=== PATIENT | female | born 1970 | race Caucasian/White ===

== ENCOUNTER 2020-01-10 11:13 | Inpatient (IN) | payer MEDICARE, OTHER ==
[~2020-01-10] VITALS: Ht 154.9 cm; Wt 67.1 kg
--- NOTE | 2020-01-10 11:41 | NUR ---
PT IS IN ROOM #1A. DR SYED EVALUATED THE PT.
[2020-01-10] MEDS ORDERED: ACETAMINOPHEN ES 500 MG TABLET PO ONE (11:45)
[2020-01-10] MEDS ORDERED: IBUPROFEN 400 MG TABLET PO ONE (12:00)
[2020-01-10] MEDS ORDERED: IV NS 1000 ML 1,000 ML IV ONE (12:00)
[2020-01-10] MEDS ORDERED: CEFEPIME HCL 2 G in IV DEXTROSE 5% 100 ML IV ONE (12:00)
[2020-01-10 12:07] LABS: BASOPHILS % (AUTO) 0.3 % (0.0-2.0); EOSINOPHILS % (AUTO) 0.3 % (0.0-7.0); HEMATOCRIT 39.1 % (31.2-41.9); HEMOGLOBIN 12.7 g/dL (10.9-14.3); LYMPHOCYTES # (AUTO) 1.3 K/uL (20.0-40.0); LYMPHOCYTES % (AUTO) 9.8 % (20.5-51.5); MEAN CORPUSCULAR HEMOGLOBIN 28.8 uug (24.7-32.8); MEAN CORPUSCULAR HGB CONC 32 g/dL (32.3-35.6); MEAN CORPUSCULAR VOLUME 88.8 fL (75.5-95.3); MONOCYTES # (AUTO) 0.5 K/uL (2.0-10.0); MONOCYTES % (AUTO) 3.9 % (0.0-11.0); NEUTROPHILS # (AUTO) 11.5 K/uL (1.8-8.9); NEUTROPHILS % (AUTO) 85.7 % (38.5-71.5); PLATELET COUNT (AUTO) 241 K/uL (179-408); WHITE BLOOD COUNT (AUTO) 13.4 K/uL (3.8-11.8)
[2020-01-10] MEDS ORDERED: CEFEPIME HCL 1 G VIAL ONE (12:07)
[2020-01-10] MEDS ORDERED: IBUPROFEN 400 MG TABLET ONE (12:08)
[2020-01-10] MEDS ORDERED: ACETAMINOPHEN ES 500 MG TABLET ONE (12:09)
[2020-01-10 12:18] LABS: CREATININE 0.9 mg/dL (0.6-1.3)
[2020-01-10] MEDS ORDERED: levothyroxine PO (12:33)
[2020-01-10 12:35] LABS: BILIRUBIN,DIRECT 0.1 mg/dL (0.0-0.2); BILIRUBIN,TOTAL 0.2 mg/dL (0.2-1.0); MAGNESIUM 1.9 mg/dL (1.8-2.4); PHOSPHOROUS 2.5 mg/dL (2.5-4.9); TOTAL PROTEIN, SERUM 7.6 g/dL (6.4-8.2)
[2020-01-10 12:36] LABS: THYROID STIMULATING HORMONE 0.124 mIU/mL (0.358-3.740)
[2020-01-10 13:39] LABS: *BILIRUBIN,URIN NEGATIVE (NEGATIVE); *BLOOD, URINE NEGATIVE (NEGATIVE); *CLARITY,URINE CLEAR (CLEAR); *COLOR,URINE YELLOW (YELLOW); *KETONES,URINE NEGATIVE (NEGATIVE); *UROBILINOGEN,URINE 0.2 E.U./dl (NORMAL); LEUKOCYTE ESTERASE ,URINE NEGATIVE (NEGATIVE); NITRITE, URINE NEGATIVE (NEGATIVE); PH,URINE 8.5 (5.0-8.0); UGLUCOSE NEGATIVE (NEGATIVE)
[2020-01-10] MEDS ORDERED: ONDANSETRON 4 MG/2 ML VIAL IV PRN (14:00)
--- NOTE | 2020-01-10 14:55 | NUR ---
REPORT GIVEN TO [employer]. PT WAS TRANSFERED TO ROOM #318.
--- NOTE | 2020-01-10 15:43 | NUR ---
RECEIVED PATIENT FOR ADMISSION 49 YEARS OLD FEMALE FROM ED BY [facility] TO ROOM 308 WITH DX OF SEPSIS PLACED INTO BED FIXED AND MADE COMFORTABLE PATIENT IS ALERT AND ORIENTED DENIES PAIN OR DISCOMFORTS AT THIS TIME ON ROOM AIR WITH NO SHORTNESS OF BREATH AT THIS TIME YEFRI ALDANA AWARE THAT PATIENT IS HERE WILL SEE PATIENT.
[2020-01-10 16:00] VITALS: BP 95/57
[2020-01-10] MEDS: IV NS 1000 ML 1,000 ML IV PRN (16:33)
[2020-01-10] MEDS: CEFTRIAXONE 1 G in IV DEXTROSE 5% 50 ML IV SCH (16:34)
[2020-01-10] MEDS: AZITHROMYCIN IV 500 MG in IV DEXTROSE 5% 250 ML IV SCH (17:07)
--- NOTE | 2020-01-10 17:30 | NUR ---
PATIENT STATED THAT MEDICATIONS THAT SHE TAKES AT HOME IS NOT DOCUMENTED SO SHE GAVE ME THE LIST AND I ADDED THEM TO HER HOME MEDICATION LIST AND NOTIFIED YEFRI TO RECONCILE.
[2020-01-10] MEDS ORDERED: OLAN10TA3 PO (17:37)
[2020-01-10] MEDS ORDERED: TRAZ300T2 PO (17:37)
[2020-01-10] MEDS ORDERED: GABA800T PO (17:37)
--- NOTE | 2020-01-10 18:38 | NUR ---
CALLED THE [facility] TO CLARIFY PATIENTS HOME MEDS AND THE DOSES PER ML THE PHARMACIST SHE GAVE ME A LIST OF 7 MORE MEDICATIONS THAT PATIENT IS ON ALSO CONFIRMED THAT THE DOSES OF ALL THE MEDS ENTERED IS CORRECT MESSAGE SENT TO YEFRI ROONEY
[2020-01-10] MEDS ORDERED: LEVO125T8 PO (18:52)
[2020-01-10] MEDS ORDERED: ARIP20TA4 PO (18:52)
[2020-01-10] MEDS ORDERED: LAMO200T2 PO (18:52)
[2020-01-10] MEDS ORDERED: [UNRECOGNIZED DRUG - OTHER] (18:52)
[2020-01-10] MEDS ORDERED: DEXL60CA3 PO (18:52)
[2020-01-10] MEDS ORDERED: CLON1TAB PO (18:52)
[2020-01-10] MEDS ORDERED: TOPI50TA PO (18:52)
[2020-01-10] MEDS ORDERED: MELO15TA13 PO (18:52)
[2020-01-10] MEDS ORDERED: MELOXICAM 7.5 MG TABLET PO PRN (19:00)
--- NOTE | 2020-01-10 19:34 | NUR ---
LACTIC ACID LEVEL IS 2.7 RECEIVED FROM THE LAB AND RELAYED TO YEFRI WITH NO NEW ORDERS AT THIS TIME
--- NOTE | 2020-01-10 21:00 | NUR ---
NEVIN Restrepo ordered repeat lactic acid which is now 0.7.
[2020-01-10 21:07] VITALS: BP 107/60
[2020-01-10] MEDS: GABAPENTIN 400 MG CAPSULE PO SCH (21:36)
[2020-01-10] MEDS: TRAZODONE 100 MG TABLET PO SCH (21:37)
[2020-01-10] MEDS: OLANZAPINE 5 MG TABLET PO SCH (22:52)
[2020-01-10] MEDS: ARIPIPRAZOLE 10 MG TABLET PO SCH (22:52)
[2020-01-10] MEDS: TOPIRAMATE 25 MG TABLET PO SCH (22:53)
[2020-01-11 01:31] VITALS: BP 109/57
[2020-01-11 05:14] VITALS: BP 107/81
[2020-01-11] MEDS: IV NS 1000 ML 1,000 ML IV PRN ×2 (05:57→15:20)
[2020-01-11] MEDS: PANTOPRAZOLE SODIUM 40 MG TABLET.DR PO SCH (06:00)
--- NOTE | 2020-01-11 06:02 | NUR ---
Patient rested well in between care;no acute distress; periods of confusion; bed alarm on all the time; assisted to meet hygiene needs; continue to monitor; continue plan of care
[2020-01-11 06:57] LABS: BASOPHILS % (AUTO) 0.4 % (0.0-2.0); EOSINOPHILS # (AUTO) 0.1 K/uL (0.0-0.7); EOSINOPHILS % (AUTO) 1.1 % (0.0-7.0); HEMATOCRIT 35.3 % (31.2-41.9); HEMOGLOBIN 11.6 g/dL (10.9-14.3); LYMPHOCYTES # (AUTO) 1.7 K/uL (20.0-40.0); LYMPHOCYTES % (AUTO) 14.3 % (20.5-51.5); MEAN CORPUSCULAR HEMOGLOBIN 29.5 uug (24.7-32.8); MEAN CORPUSCULAR HGB CONC 33 g/dL (32.3-35.6); MEAN CORPUSCULAR VOLUME 89.7 fL (75.5-95.3); MONOCYTES # (AUTO) 0.5 K/uL (2.0-10.0); MONOCYTES % (AUTO) 4.8 % (0.0-11.0); NEUTROPHILS # (AUTO) 9.2 K/uL (1.8-8.9); NEUTROPHILS % (AUTO) 79.4 % (38.5-71.5); PLATELET COUNT (AUTO) 226 K/uL (179-408); RED BLOOD CELL COUNT(AUTO) 3.93 MIL/uL (3.63-4.92); WHITE BLOOD COUNT (AUTO) 11.6 K/uL (3.8-11.8)
[2020-01-11 07:12] LABS: CREATININE 0.9 mg/dL (0.6-1.3); POTASSIUM 4.2 mmol/L (3.5-5.1)
[2020-01-11 07:16] LABS: BILIRUBIN,TOTAL 0.2 mg/dL (0.2-1.0); MAGNESIUM 1.8 mg/dL (1.8-2.4); PHOSPHOROUS 2.2 mg/dL (2.5-4.9); TOTAL PROTEIN, SERUM 6.5 g/dL (6.4-8.2)
[2020-01-11] MEDS ORDERED: NEUTRA PHOS PACKET PO ONE (08:30)
[2020-01-11] MEDS: CLONAZEPAM 1 MG TABLET PO SCH (08:41)
[2020-01-11] MEDS: LAMOTRIGINE 100 MG TABLET PO SCH (08:41)
[2020-01-11] MEDS: LEVOTHYROXINE SODIUM 125 MCG TABLET PO SCH (08:42)
--- NOTE | 2020-01-11 08:45 | NUR ---
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
[2020-01-11] MEDS ORDERED: Medication Not On Formulary EA (Dexlansoprazole (Dexilant) 30 MG) PO SCH (09:00)
[2020-01-11] MEDS ORDERED: LAMOTRIGINE 200 MG TABLET PO SCH (09:00)
[2020-01-11] MEDS ORDERED: AMITIZA 24 MCG PO SCH (09:00)
--- NOTE | 2020-01-11 09:35 | NUR ---
PATIENT SEEN BY THE PHYSICAL THERAPY FOR EVALUATION AND THE ASSISTED HER TO THE BATHROOM AND SHE VOIDED AND BACK TO BED GAIT IS UNSTEADY AND WEAK AT THIS TIME
--- NOTE | 2020-01-11 11:27 | NUR ---
PATIENT IS RESTING WITH IVF IN PROGRESS AT THIS TIME DENIES DISCOMFORTS WILL CONTINUE TO OBSERVE.
[2020-01-11 11:39] VITALS: BP 127/84
[2020-01-11] MEDS: AZITHROMYCIN IV 500 MG in IV DEXTROSE 5% 250 ML IV SCH (13:52)
[2020-01-11] MEDS: CEFTRIAXONE 1 G in IV DEXTROSE 5% 50 ML IV SCH (15:18)
[2020-01-11 15:59] VITALS: BP 127/82
--- NOTE | 2020-01-11 18:00 | NUR ---
REMAIN ON IVF AND ATB WITH NO ADVERSE OR ALLERGIC REACTIONS AT THIS TIME RESTING COMFORTABLY AT THIS TIME
--- NOTE | 2020-01-11 19:48 | NUR ---
Pt refuses to have blood pressure taken at this time. Patient does not appear to be in any distress at this time. Informed patient that vital signs will be taken prior to medication administration. Patient verbalized understanding.
[2020-01-11 20:00] VITALS: BP 127/71
--- NOTE | 2020-01-11 20:00 | NUR ---
Received patient awake and alert. Patient shows no signs or symptoms of distress this time. Vital signs stable. Patient reports feeling very anxious because she does not want to be in the hospital anymore. Patient took off continuous pulse oximeter and refuses to have it placed back on. Explained to patient risks and benefits of having continuous pulse ox and patient still refuses to have it put on. Patient requesting for her nightly medication to help calm her. Will administer medication and will continue to monitor patient.
[2020-01-11] MEDS: ARIPIPRAZOLE 10 MG TABLET PO SCH (20:36)
[2020-01-11] MEDS: GABAPENTIN 400 MG CAPSULE PO SCH (20:36)
[2020-01-11] MEDS: OLANZAPINE 5 MG TABLET PO SCH (20:36)
[2020-01-11] MEDS: TRAZODONE 100 MG TABLET PO SCH (20:37)
[2020-01-11] MEDS: TOPIRAMATE 25 MG TABLET PO SCH (20:37)
[2020-01-12] MEDS: IV NS 1000 ML 1,000 ML IV PRN (02:23)
[2020-01-12 02:56] LABS: *URINE HCG, QUAL NEGATIVE (NEGATIVE)
[2020-01-12 04:00] VITALS: BP 106/65
[2020-01-12] MEDS: PANTOPRAZOLE SODIUM 40 MG TABLET.DR PO SCH (06:07)
[2020-01-12 06:47] LABS: BASOPHILS % (AUTO) 0.6 % (0.0-2.0); EOSINOPHILS # (AUTO) 0.2 K/uL (0.0-0.7); EOSINOPHILS % (AUTO) 2.3 % (0.0-7.0); HEMATOCRIT 34.2 % (31.2-41.9); HEMOGLOBIN 11.6 g/dL (10.9-14.3); LYMPHOCYTES # (AUTO) 2.1 K/uL (20.0-40.0); LYMPHOCYTES % (AUTO) 25.3 % (20.5-51.5); MEAN CORPUSCULAR HEMOGLOBIN 30.1 uug (24.7-32.8); MEAN CORPUSCULAR HGB CONC 34 g/dL (32.3-35.6); MEAN CORPUSCULAR VOLUME 89.2 fL (75.5-95.3); MONOCYTES # (AUTO) 0.5 K/uL (2.0-10.0); MONOCYTES % (AUTO) 6.3 % (0.0-11.0); NEUTROPHILS # (AUTO) 5.3 K/uL (1.8-8.9); NEUTROPHILS % (AUTO) 65.5 % (38.5-71.5); PLATELET COUNT (AUTO) 224 K/uL (179-408); RED BLOOD CELL COUNT(AUTO) 3.84 MIL/uL (3.63-4.92); WHITE BLOOD COUNT (AUTO) 8.1 K/uL (3.8-11.8)
[2020-01-12 06:53] LABS: CREATININE 0.9 mg/dL (0.6-1.3); MAGNESIUM 1.7 mg/dL (1.8-2.4); PHOSPHOROUS 2.8 mg/dL (2.5-4.9); POTASSIUM 3.9 mmol/L (3.5-5.1)
--- NOTE | 2020-01-12 07:25 | NUR ---
Patient shows no signs or symptoms of distress this time. Vital signs stable. Patient endorsed to day shift nurse in stable condition
--- NOTE | 2020-01-12 08:00 | NUR ---
RECEIVED PATIENT IN BED AWAKE ALERT AND ORIENTED DENIES PAIN OR DISCOMFORTS AT THIS TIME REMAIN ON REMAIN ON IVF ORDERED WITH NO S/S OF INFILTERATION ON SITE ATB IN PROGRESS WITH NO ADVERSE OR ALLERGIC REACTIONS AT THIS TIME NO SOB SATS HAS BEEN ADEQUATE MADE COMFORTABLE WILL CONTINUE TO OBSERVE.
[2020-01-12] MEDS: LAMOTRIGINE 100 MG TABLET PO SCH (08:15)
[2020-01-12] MEDS: CLONAZEPAM 1 MG TABLET PO SCH (08:15)
[2020-01-12] MEDS: LEVOTHYROXINE SODIUM 125 MCG TABLET PO SCH (08:20)
--- NOTE | 2020-01-12 08:21 | NUR ---
UNABLE TO SCAN SYNTHROID THE COMPUTER SAID ITS AN UNKNOWN NDC NUMBER CALLED AND NOTIFIED THE PHARMACIST SPOKE WITH MATHIEU STATED TO USE THE KAIN BAR CODE ENTER WILL UPDATE THIS ITS PROBABLY FROM A DIFFERENT FUNCTIONAL ARCHITECT.
[2020-01-12] MEDS: MAGNESIUM SULFATE/D5W 100 ML IV SCH ×2 (11:28→12:26)
[2020-01-12 11:50] VITALS: BP 119/71
[2020-01-12] MEDS: CEFTRIAXONE 1 G in IV DEXTROSE 5% 50 ML IV SCH (14:05)
--- NOTE | 2020-01-12 14:44 | NUR ---
PATIENT HAS A DISCHARGE ORDER AND IS BEING PREPPED FOR DISCHARGE STATED HER WILL BE ABLE TO PICK HER UP THIS AFTERNOON HER MAG LEVEL IS 1.7 WITH 2 GRAMS OF MAG ORDERED AND IS BEING INFUSED AT THIS TIME.REMAIN ON ATB ORDERED WITH NO ADVERSE OR ALLERGIC REACTIONS AT THIS TIME.AFEBRILE WILL CONTINUE TO OBSERVE.
[2020-01-12 15:40] VITALS: BP 103/69
--- NOTE | 2020-01-12 15:45 | NUR ---
PATIENT DISCHARGED PICKED UP BY HER IN SATISFACTORY CONDITION WITH DISCHARGE INSTRUCTIONS AND ALL OF HER PERSONAL BELONGINGS AND SHE WAS INSTRUCTED TO FOLLOW UP WITH HER PRIMARY DOCTOR AND THE ORTHOPEDIC AND SHE ALREADY HAS A APPOINTMENT FOR SATURDAY AND SHE EXPRESSED UNDERSTAND.
== END 2020-01-12 15:45 | disposition home or self-care (01) | DRG 864 ==
LOC: ER 11:13 → TELE3 14:52 → MEDSURG3 01-11 10:30
PROVIDERS: ADMIT Registered Nurse; ATTEND Nurse Practitioner Acute Care
DX: R50.9 Fever, unspecified (principal); E87.2 Acidosis; E03.9 Hypothyroidism, unspecified; F32.9 Major depressive disorder, single episode, unspecified; F41.9 Anxiety disorder, unspecified; Z87.891 Personal history of nicotine dependence; Z88.0 Allergy status to penicillin; D72.829 Elevated white blood cell count, unspecified; Z98.890 Other specified postprocedural states
CPT/HCPCS: 36415; 70030-TC; 71045; 83605; 83615; 83690; 83735; 84100; 84443; 84703; 85025; 85730; 86140; 87040; 87086; 87400; 93005; 93307; A4663; A9150; G0378; J0456; J0692; J0696; J3475; J3490; J7030; J7060

== ENCOUNTER 2020-08-29 08:10 | Emergency (ER) | payer MEDICARE, OTHER ==
[~2020-08-29] VITALS: Ht 160 cm; Wt 65.8 kg
[~2020-08-29 08:10] MED LIST: DEXL60CA3 PO; GABA800T PO; HYDR-4354 PO; LAMO200T2 PO; LEVO125T8 PO; MELO15TA13 PO; OLAN10TA3 PO; TOPI50TA PO; TRAZ300T2 PO; [UNRECOGNIZED DRUG - OTHER]
[2020-08-29] MEDS ORDERED: CLAR-45 PO (09:57)
[2020-08-29] MEDS ORDERED: PROM118S5 PO (09:58)
--- NOTE | 2020-08-29 10:15 | NUR ---
Patient discharged to home in stable condition. Written and verbal after care instructions given. Patient verbalizes understanding of instructions. Stressed follow up or return to ER for worsening s/s.PT WALKS IN STEADY GAIT, NO SIGN OF DISTRESS.
--- NOTE | 2020-08-30 11:17 | NUR ---
Patient COVID-19 PCR results came back positive, patient was contacted and informed about her results. Isolation instruction was given to patient.
== END 2020-08-29 10:17 | disposition home or self-care (01) ==
LOC: ER 08:10
DX: U07.1 COVID-19 (principal); E03.9 Hypothyroidism, unspecified; Z79.890 Hormone replacement therapy; Z79.899 Other long term (current) drug therapy; Z88.5 Allergy status to narcotic agent; Z88.0 Allergy status to penicillin; F41.9 Anxiety disorder, unspecified; F32.9 Major depressive disorder, single episode, unspecified
CPT/HCPCS: 71045; 87426; 99284; U0003; A4663

== ENCOUNTER 2023-02-19 19:06 | Emergency (ER) | payer MEDICARE, OTHER ==
[~2023-02-19] VITALS: Ht 152.4 cm; Wt 61.2 kg
[~2023-02-19 19:06] MED LIST changes: +CLAR-45 PO; +PROM118S5 PO
[2023-02-19] MEDS ORDERED: VANCOMYCIN 1G/D5W 200 ML PIGGYBACK IV ONE (20:15)
[2023-02-19 20:22] LABS: BASOPHILS % (AUTO) 0.6 % (0.0-2.0); EOSINOPHILS # (AUTO) 0.2 K/uL (0.0-0.7); EOSINOPHILS % (AUTO) 2.8 % (0.0-7.0); HEMATOCRIT 36.5 % (31.2-41.9); HEMOGLOBIN 12.2 g/dL (10.9-14.3); LYMPHOCYTES # (AUTO) 2.4 K/uL (0.8-4.8); LYMPHOCYTES % (AUTO) 33.9 % (20.5-51.5); MEAN CORPUSCULAR HEMOGLOBIN 30.5 uug (24.7-32.8); MEAN CORPUSCULAR HGB CONC 33 g/dL (32.3-35.6); MEAN CORPUSCULAR VOLUME 91.2 fL (75.5-95.3); MONOCYTES # (AUTO) 0.5 K/uL (0.1-1.30); MONOCYTES % (AUTO) 6.7 % (0.0-11.0); NEUTROPHILS # (AUTO) 3.9 K/uL (1.8-8.9); PLATELET COUNT (AUTO) 244 K/uL (179-408); RED BLOOD CELL COUNT(AUTO) 4.01 MIL/uL (3.63-4.92); RED CELL DISTRIBUTION WIDTH 12.8 % (12.3-17.7); WHITE BLOOD COUNT (AUTO) 6.9 K/uL (3.8-11.8)
[2023-02-19] MEDS ORDERED: VANCOMYCIN 1000 MG VIAL ONE (20:26)
[2023-02-19 20:29] LABS: DIFFERENTIAL COMMENT 1
[2023-02-19 20:36] LABS: CALCIUM 9.4 mg/dL (8.5-10.1); CARBON DIOXIDE 32 mmol/L (21-32); CHLORIDE 105 mmol/L (98-107); GLUCOSE 113 mg/dL (74-106); POTASSIUM 4.1 mmol/L (3.5-5.1); SODIUM SERUM 143 mmol/L (136-145); UREA NITROGEN, BLOOD 18 mg/dL (7-18)
[2023-02-19 20:50] LABS: ALANINE AMINOTRANSFERASE 23 U/L (14-59); ALBUMIN 3.3 g/dL (3.4-5.0); ALKALINE PHOSPHATASE 63 U/L (50-136); ASPARTATE AMINOTRANSFERASE 16 U/L (15-37); BILIRUBIN,DIRECT < 0.1 mg/dL (0.0-0.2); BILIRUBIN,TOTAL 0.1 mg/dL (0.2-1.0); TOTAL PROTEIN, SERUM 6.7 g/dL (6.4-8.2)
[2023-02-19] MEDS ORDERED: SULF1TAB48 PO (22:45)
[2023-02-19] MEDS ORDERED: TRIA60LO7 TP (22:49)
[2023-02-19 22:54] VITALS: BP 128/71; O2SAT 99
== END 2023-02-19 22:56 | disposition home or self-care (01) ==
LOC: ER 19:09
DX: L03.113 Cellulitis of right upper limb (principal); E03.9 Hypothyroidism, unspecified; Z90.89 Acquired absence of other organs; Z88.0 Allergy status to penicillin; Z88.5 Allergy status to narcotic agent; Z79.2 Long term (current) use of antibiotics; Z79.899 Other long term (current) drug therapy
CPT/HCPCS: 99284; 96365; 80076; 80048; 85025; 36415; 73060; 73090; 83605; J3370; J7050; A4663

== ENCOUNTER 2024-10-21 20:59 | Inpatient (IN) | payer MEDICARE, OTHER ==
[~2024-10-21] VITALS: Ht 152.4 cm; Wt 40.8 kg
[~2024-10-21 20:59] MED LIST changes: +SULF1TAB48 PO; +TRIA60LO7 TP
[2024-10-21 21:20] LABS: BASOPHILS # (AUTO) 0.1 K/UL (0.0-0.2); BASOPHILS % (AUTO) 1.3 % (0.0-2.0); EOSINOPHILS % (AUTO) 0.3 % (0.0-7.0); HEMATOCRIT 37.8 % (31.2-41.9); HEMOGLOBIN 12.5 g/dL (10.9-14.3); LYMPHOCYTES # (AUTO) 2.5 K/uL (0.8-4.8); LYMPHOCYTES % (AUTO) 34.4 % (20.5-51.5); MEAN CORPUSCULAR HEMOGLOBIN 28.8 uug (24.7-32.8); MEAN CORPUSCULAR HGB CONC 33 g/dL (32.3-35.6); MEAN CORPUSCULAR VOLUME 86.7 fL (75.5-95.3); MONOCYTES # (AUTO) 0.5 K/uL (0.1-1.30); MONOCYTES % (AUTO) 7.3 % (0.0-11.0); NEUTROPHILS # (AUTO) 4.1 K/uL (1.8-8.9); NEUTROPHILS % (AUTO) 56.7 % (38.5-71.5); PLATELET COUNT (AUTO) 342 K/uL (179-408); RED BLOOD CELL COUNT(AUTO) 4.36 MIL/uL (3.63-4.92); RED CELL DISTRIBUTION WIDTH 13.9 % (12.3-17.7); WHITE BLOOD COUNT (AUTO) 7.3 K/uL (3.8-11.8)
[2024-10-21 21:25] LABS: DIFFERENTIAL COMMENT 1
[2024-10-21 21:29] LABS: CALCIUM 9.3 mg/dL (8.5-10.1); CARBON DIOXIDE 26 mmol/L (21-32); CHLORIDE 106 mmol/L (98-107); CREATININE 0.7 mg/dL (0.6-1.3); GLUCOSE 92 mg/dL (74-106); SODIUM SERUM 143 mmol/L (136-145); UREA NITROGEN, BLOOD 11 mg/dL (7-18)
[2024-10-21] MEDS ORDERED: ONDANSETRON 4 MG/2 ML VIAL ONE (21:32)
[2024-10-21] MEDS ORDERED: HYDROMORPHONE 1 MG/1 ML DISP.SYRIN ONE (21:32)
[2024-10-21] MEDS ORDERED: LORAZEPAM 2 MG/1 ML VIAL ONE (21:33)
[2024-10-21 21:41] LABS: ALANINE AMINOTRANSFERASE 29 U/L (14-59); ALBUMIN 3.1 g/dL (3.4-5.0); ALKALINE PHOSPHATASE 66 U/L (50-136); ASPARTATE AMINOTRANSFERASE 24 U/L (15-37); BILIRUBIN,DIRECT 0.1 mg/dL (0.0-0.2); BILIRUBIN,TOTAL 0.5 mg/dL (0.2-1.0); NT-PRO BNP 381 pg/mL (0-125); TOTAL PROTEIN, SERUM 6.4 g/dL (6.4-8.2)
[2024-10-21] MEDS: IV NORMAL SALINE 1000 ML BAG IV ONE (21:49)
[2024-10-21] MEDS: ONDANSETRON 4 MG/2 ML VIAL IV ONE (21:49)
[2024-10-21] MEDS: HYDROMORPHONE 1 MG/1 ML DISP.SYRIN IV ONE (21:50)
[2024-10-21] MEDS: LORAZEPAM 2 MG/1 ML VIAL IV ONE (21:50)
[2024-10-21] MEDS ORDERED: SWABABLE VALVE TRANSFER SET EA MC ONE (23:19)
[2024-10-21] MEDS ORDERED: IOHEXOL 350 100 ML INFUS..BTL ONE (23:19)
[2024-10-21] MEDS ORDERED: IV NORMAL SALINE 250 ML IV ONE (23:22)
[2024-10-22] MEDS ORDERED: MAGNESIUM HYDROXIDE 30 ML LIQUID UDC PO PRN (01:30)
[2024-10-22] MEDS ORDERED: ONDANSETRON 4 MG/2 ML VIAL IV PRN (01:30)
[2024-10-22] MEDS ORDERED: ACETAMINOPHEN 500 MG TABLET PO PRN (01:30)
[2024-10-22] MEDS ORDERED: TRAZ-257 PO (01:36)
[2024-10-22] MEDS ORDERED: TOPI100T PO (01:36)
[2024-10-22] MEDS ORDERED: HYDR-4077 PO (01:36)
[2024-10-22] MEDS ORDERED: PLEC3TAB2 PO (01:36)
[2024-10-22] MEDS ORDERED: PANT40TA2 PO (01:36)
[2024-10-22] MEDS ORDERED: LEVO150T8 PO (01:36)
[2024-10-22] MEDS ORDERED: CLON2TAB PO (01:36)
[2024-10-22 03:15] VITALS: BP 125/67; TEMP 97.6; O2SAT 98
[2024-10-22] MEDS: HYDROMORPHONE 1 MG/1 ML DISP.SYRIN IV PRN (03:15)
[2024-10-22] MEDS: PANTOPRAZOLE SODIUM 40 MG VIAL IV SCH (08:05)
[2024-10-22 08:11] VITALS: BP 122/60; TEMP 97.6; O2SAT 98
[2024-10-22] MEDS: LIDOCAINE 5% PATCH TD SCH (11:40)
[2024-10-22] MEDS: KETOROLAC TROMETHAMINE 15 MG INJ IVP PRN (11:45)
[2024-10-22 14:08] LABS: BASOPHILS % (AUTO) 0.8 % (0.0-2.0); EOSINOPHILS % (AUTO) 0.4 % (0.0-7.0); HEMATOCRIT 36.1 % (31.2-41.9); HEMOGLOBIN 12.2 g/dL (10.9-14.3); LYMPHOCYTES % (AUTO) 16.3 % (20.5-51.5); MEAN CORPUSCULAR HEMOGLOBIN 29.2 uug (24.7-32.8); MEAN CORPUSCULAR HGB CONC 34 g/dL (32.3-35.6); MEAN CORPUSCULAR VOLUME 86.6 fL (75.5-95.3); MONOCYTES # (AUTO) 0.3 K/uL (0.1-1.30); MONOCYTES % (AUTO) 5.2 % (0.0-11.0); NEUTROPHILS # (AUTO) 4.7 K/uL (1.8-8.9); NEUTROPHILS % (AUTO) 77.3 % (38.5-71.5); PLATELET COUNT (AUTO) 298 K/uL (179-408); RED BLOOD CELL COUNT(AUTO) 4.17 MIL/uL (3.63-4.92); RED CELL DISTRIBUTION WIDTH 13.9 % (12.3-17.7); WHITE BLOOD COUNT (AUTO) 6.1 K/uL (3.8-11.8)
[2024-10-22 14:18] LABS: CALCIUM 8.9 mg/dL (8.5-10.1); CREATININE 0.6 mg/dL (0.6-1.3); MAGNESIUM 1.8 mg/dL (1.8-2.4); POTASSIUM 3.7 mmol/L (3.5-5.1)
[2024-10-22 14:23] LABS: DIFFERENTIAL COMMENT 1
[2024-10-22] MEDS ORDERED: CHLO473M7 TOP (15:01)
[2024-10-22] MEDS ORDERED: HYDR50TA61 PO (15:02)
[2024-10-22] MEDS ORDERED: HYDR-3972 PO (15:02)
[2024-10-22] MEDS ORDERED: VALB40CA2 PO (15:03)
[2024-10-22] MEDS ORDERED: KETO120S5 TP (15:04)
[2024-10-22] MEDS ORDERED: DESV25TA2 PO (15:16)
[2024-10-22] MEDS ORDERED: DEXT10TA19 PO (15:17)
[2024-10-22] MEDS ORDERED: CLON2TAB11 PO (15:17)
[2024-10-22] MEDS ORDERED: MAGN400C PO (15:19)
[2024-10-22] MEDS ORDERED: CALC-343 PO (15:19)
[2024-10-22] MEDS: TOPIRAMATE 100 MG TABLET PO SCH (15:45)
[2024-10-22 16:00] VITALS: BP 119/64; TEMP 98.1; O2SAT 97
[2024-10-22] MEDS ORDERED: PLECANATIDE 3 MG PO SCH (17:00)
[2024-10-22] MEDS: CALCIUM CARBONATE 500 MG TABLET PO SCH (17:23)
[2024-10-22 19:48] VITALS: BP 115/57; TEMP 97.7; O2SAT 98
[2024-10-22] MEDS: GABAPENTIN 400 MG CAPSULE PO SCH (20:45)
[2024-10-22] MEDS: DOCUSATE SODIUM 100 MG CAPSULE PO SCH (20:45)
[2024-10-22] MEDS: TRAZODONE 100 MG TABLET PO SCH (20:46)
[2024-10-22] MEDS: hydrOXYzine HCL 25 MG TABLET PO SCH (20:46)
[2024-10-22] MEDS ORDERED: VALBENAZINE TOSYLATE PO SCH (21:00)
[2024-10-23 04:46] VITALS: BP 101/62; TEMP 97.5; O2SAT 98
[2024-10-23] MEDS: LEVOTHYROXINE SODIUM 150 MCG TABLET PO SCH (09:02)
[2024-10-23] MEDS ORDERED: LIDO30AD10 TP (09:55)
[2024-10-23 11:13] VITALS: BP 95/44; TEMP 98.2; O2SAT 97
[2024-10-23 19:35] VITALS: BP 106/65; TEMP 97.4; O2SAT 100
[2024-10-23] MEDS: CLONAZEPAM 1 MG TABLET PO SCH (22:21)
[2024-10-24 05:25] VITALS: BP 101/64; TEMP 97.5; O2SAT 100
[2024-10-24 11:20] VITALS: BP 100/47; TEMP 98; O2SAT 97
[2024-10-24 14:26] VITALS: BP 106/52; TEMP 97.8; O2SAT 100
[2024-10-24 15:35] VITALS: BP 100/45; TEMP 97.8; O2SAT 100
[2024-10-24] MEDS: ENSURE ENLIVE (VAN) 240 ML LIQUID PO SCH (17:42)
[2024-10-24] MEDS: TRULANCE 3 MG PO SCH (18:18)
[2024-10-24 19:20] VITALS: BP 100/64; TEMP 98.3; O2SAT 97
[2024-10-24] MEDS: INGREZZA 40 MG PO SCH (20:51)
[2024-10-24] MEDS: CLONAZEPAM 1 MG TABLET PO SCH (22:30)
[2024-10-25] MEDS: PANTOPRAZOLE SODIUM 40 MG TABLET.DR PO SCH (06:14)
[2024-10-25 06:31] VITALS: BP 104/74; TEMP 97.6; O2SAT 97
[2024-10-25 11:30] VITALS: BP 101/57; TEMP 98.4; O2SAT 100
[2024-10-25 15:23] VITALS: BP 100/57; TEMP 98.2; O2SAT 100
[2024-10-25] MEDS: HYDROCODONE/APAP 5-325MG TABLET PO PRN (16:44)
[2024-10-26] MEDS: LEVOTHYROXINE SODIUM 150 MCG TABLET PO SCH (06:22)
[2024-10-26] MEDS ORDERED: LEVOTHYROXINE SODIUM 150 MCG TABLET PO SCH (07:00)
[2024-10-26 11:48] VITALS: BP 90/50; TEMP 97.8; O2SAT 97
== END 2024-10-26 15:50 | DRG 184 ==
LOC: ER 21:02 → MEDSURG3 10-22 02:25
PROVIDERS: ATTEND Internal Medicine
DX: S22.41XA Multiple fractures of ribs, right side, initial encounter for closed fracture (principal); E44.1 Mild protein-calorie malnutrition; Z68.1 Body mass index [BMI] 19.9 or less, adult; G89.4 Chronic pain syndrome; W01.190A Fall on same level from slipping, tripping and stumbling with subsequent striking against furniture, initial encounter; Y92.039 Unspecified place in apartment as the place of occurrence of the external cause; E03.9 Hypothyroidism, unspecified; Z79.890 Hormone replacement therapy; F32.A Depression, unspecified; F41.9 Anxiety disorder, unspecified; R79.1 Abnormal coagulation profile; M79.89 Other specified soft tissue disorders; Z88.0 Allergy status to penicillin; Z88.5 Allergy status to narcotic agent; Z98.84 Bariatric surgery status; Z79.899 Other long term (current) drug therapy
CPT/HCPCS: 36415; 71045; 71275; 83735; 84100; 84484; 85025; A4663; G0378; J1171; J1885; J2060; J2405; J2470; J7040; Q9967

== ENCOUNTER 2024-11-29 20:20 | Emergency (ER) | payer MEDICARE, OTHER ==
[~2024-11-29] VITALS: Ht 167.6 cm; Wt 37.2 kg
[~2024-11-29 20:20] MED LIST changes: +CALC-343 PO; +CHLO473M7 TOP; -CLAR-45 PO; +CLON2TAB PO; +DESV25TA2 PO; -DEXL60CA3 PO; +DEXT10TA19 PO; +HYDR-3972 PO; -HYDR-4354 PO; +HYDR50TA61 PO; +KETO120S5 TP; -LAMO200T2 PO; -LEVO125T8 PO; +LEVO150T8 PO; +LIDO30AD10 TP; +MAGN400C PO; -MELO15TA13 PO; -OLAN10TA3 PO; +PLEC3TAB2 PO; -PROM118S5 PO; -SULF1TAB48 PO; +TOPI100T PO; -TOPI50TA PO; +TRAZ-257 PO; -TRAZ300T2 PO; -TRIA60LO7 TP; +VALB40CA2 PO; -[UNRECOGNIZED DRUG - OTHER]
[2024-11-29] MEDS ORDERED: ONDANSETRON 4 MG/2 ML VIAL ONE (21:15)
[2024-11-29] MEDS ORDERED: HYDROMORPHONE 1 MG/1 ML DISP.SYRIN ONE (21:15)
[2024-11-29 21:16] LABS: BASOPHILS % (AUTO) 0.3 % (0.0-2.0); EOSINOPHILS # (AUTO) 0.2 K/uL (0.0-0.7); EOSINOPHILS % (AUTO) 2.7 % (0.0-7.0); HEMATOCRIT 42.1 % (31.2-41.9); HEMOGLOBIN 14.5 g/dL (10.9-14.3); LYMPHOCYTES % (AUTO) 37.6 % (20.5-51.5); MEAN CORPUSCULAR HEMOGLOBIN 29.3 uug (24.7-32.8); MEAN CORPUSCULAR HGB CONC 34 g/dL (32.3-35.6); MEAN CORPUSCULAR VOLUME 85.2 fL (75.5-95.3); MONOCYTES % (AUTO) 12.3 % (0.0-11.0); NEUTROPHILS # (AUTO) 3.7 K/uL (1.8-8.9); NEUTROPHILS % (AUTO) 47.1 % (38.5-71.5); PLATELET COUNT (AUTO) 336 K/uL (179-408); RED BLOOD CELL COUNT(AUTO) 4.94 MIL/uL (3.63-4.92); RED CELL DISTRIBUTION WIDTH 14.5 % (12.3-17.7)
[2024-11-29 21:17] LABS: DIFFERENTIAL COMMENT 1
[2024-11-29] MEDS: IV NORMAL SALINE 1000 ML BAG IV ONE (21:28)
[2024-11-29] MEDS: HYDROMORPHONE 1 MG/1 ML DISP.SYRIN IV ONE (21:30)
[2024-11-29] MEDS: ONDANSETRON 4 MG/2 ML VIAL IV ONE (21:30)
[2024-11-29 22:38] LABS: ALBUMIN 2.2 g/dL (3.4-5.0); BILIRUBIN,DIRECT 0.1 mg/dL (0.0-0.2); BILIRUBIN,TOTAL 0.2 mg/dL (0.2-1.0); CALCIUM 8.4 mg/dL (8.5-10.1); CREATININE 0.9 mg/dL (0.6-1.3); POTASSIUM 4.1 mmol/L (3.5-5.1); TOTAL PROTEIN, SERUM 4.9 g/dL (6.4-8.2)
[2024-11-29 22:47] LABS: MAGNESIUM 1.5 mg/dL (1.8-2.4)
[2024-11-29 22:51] LABS: THYROID STIMULATING HORMONE 0.028 mIU/mL (0.358-3.740)
[2024-11-29] MEDS ORDERED: IV NS 1000 ML 1,000 ML IV PRN (23:00)
[2024-11-29] MEDS ORDERED: ONDANSETRON 4 MG/2 ML VIAL IV PRN (23:00)
[2024-11-29] MEDS ORDERED: MORPHINE SULFATE 2 MG/1 ML DISP.SYRIN IV PRN (23:00)
[2024-11-29] MEDS ORDERED: levoFLOXacin 750MG/D5W 750 MG in PREMIXED 1 EACH IV SCH (23:00)
[2024-11-29] MEDS ORDERED: KETOROLAC TROMETHAMINE 15 MG INJ ONE (23:03)
[2024-11-29] MEDS: KETOROLAC TROMETHAMINE 15 MG INJ IVP ONE (23:06)
[2024-11-29] MEDS ORDERED: MAGNESIUM SULFATE/D5W 200 ML ONE (23:38)
[2024-11-29] MEDS: IV NS 1000 ML 1,000 ML IV ONE (23:45)
[2024-11-29] MEDS: DEXTROSE 5% IV ONE (23:51)
[2024-11-29] MEDS: MAGNESIUM SULFATE IV ONE (23:51)
[2024-11-30 03:14] VITALS: BP 96/63; TEMP 97.7; O2SAT 98
[2024-11-30] MEDS ORDERED: KETOROLAC TROMETHAMINE 30 MG INJ ONE (04:06)
[2024-11-30] MEDS: KETOROLAC TROMETHAMINE 30 MG INJ IM ONE (04:10)
[2024-11-30] MEDS ORDERED: METRONIDAZOLE 500 MG/NS 100ML 500 MG in PREMIXED 1 EACH IV SCH (06:00)
[2024-11-30] MEDS ORDERED: PANTOPRAZOLE SODIUM 40 MG VIAL IV SCH (09:00)
== END 2024-11-30 04:17 ==
LOC: ER 20:20
DX: R19.7 Diarrhea, unspecified (principal); E86.0 Dehydration; R10.32 Left lower quadrant pain; R11.0 Nausea; E03.9 Hypothyroidism, unspecified; E83.42 Hypomagnesemia; E88.09 Other disorders of plasma-protein metabolism, not elsewhere classified; F32.A Depression, unspecified; F19.10 Other psychoactive substance abuse, uncomplicated; F41.9 Anxiety disorder, unspecified; G40.909 Epilepsy, unspecified, not intractable, without status epilepticus; G89.4 Chronic pain syndrome; K59.00 Constipation, unspecified; Z79.899 Other long term (current) drug therapy; Z88.0 Allergy status to penicillin; Z88.5 Allergy status to narcotic agent; Z88.7 Allergy status to serum and vaccine; Z90.89 Acquired absence of other organs
CPT/HCPCS: 99285; 74176; 96365; 96375; 96366; 80076; 80048; 84439; 83690; 83735; 84100; 84443; 85025; 36415; 84481; 96372; J1885 ×2; J3475; J2405; J1171; J7040 ×2; J1956; J3490